=== PATIENT | male | born 1950 | race Caucasian/White ===

== ENCOUNTER 2024-11-07 08:41 | Emergency (ER) | payer OTHER, SELFPAY ==
--- NOTE | ~2024-11-07 | XR_ITS ---
XR shoulder LT min 2V DATE: 11/07/2024 12:53 INDICATION: Fall. Left shoulder pain. TECHNIQUE: 4 views COMPARISON: None FINDINGS: There is joint space narrowing and mild spurring at the left acromioclavicular joint. There is mild superior subluxation at the glenohumeral joint suggesting some rotator cuff atrophy. Mild left glenohumeral osteoarthritis is suggested. There is pseudoarthrosis at the coracoclavicular area. No fracture, dislocation, periosteal reaction or bone destruction or abnormal soft tissue calcificati on of the left shoulder is detected. Prominent cervical spondylosis. Likely old left upper rib fractures. Aortic arch calcification. IMPRESSION: Rotator cuff atrophy Mild glenohumeral osteoarthritis Prominent degenerative change of the left carotid fibula joint Pseudoarthrosis at the coracoclavicular area Prominent cervical spondylosis Reviewed, dictated and finalized at location [facility]. REPAIR SUPERVISOR
--- NOTE | ~2024-11-07 | CT_ITS ---
EXAMINATION: CT brain wo con DATE: 11/07/2024 12:37 INDICATION: Fall TECHNIQUE: Computed tomography (CT) of the head was performed without intravenous contrast. The mA wa s adjusted according to patient size. Iterative reconstruction technique was employed. Exam dose: 75 6.67 mGy-cm total exam DLP. COMPARISON: None FINDINGS: Very prominent bilateral symmetric cerebral cortical atrophy. There is prominent cerebellar atrophy. Vertebral, basilar and bilateral carotid siphon internal carotid artery calcifications. There is nonspecific diminished attenuation of the cerebral white matter, likely due to chronic small vessel ischemic changes. No intracranial mass lesion or hemorrhage, midline shift or mass effect. No subdural or epidural monica pollo is detected. The paranasal sinuses and mastoid air cells are well-developed and aerated. No fracture or bone destruction of the cranial vault. IMPRESSION: Very prominent cerebral cortical and cerebellar atrophy Cerebral atherosclerosis and chronic small vessel ischemic changes in cerebral white matter No acute intracranial finding or skull fracture Reviewed, dictated and finalized at [facility]. Reviewed, dictated and finalized at location [facility]. DRIER
--- NOTE | ~2024-11-07 | CT_ITS ---
CT abdomen pelvis w con Ordering provider: Shan Tinajero MD History: 74 years Male with . Hyperbilirubinemia . Comparison: None. Technique: CT abdomen and pelvis with IV and without oral contrast. Automated exposure control and it erative reconstruction technique were employed. The dose-length product was 1137.91 mGy-cm. Findings: VISUALIZED LOWER CHEST: Dependent atelectatic changes. UPPER ABDOMINAL ORGANS: Liver: Fat infiltration. Gallbladder: Normal. Spleen: Hypodense area seen medially measuring 2.7 cm. Stomach/duodenum: Small sliding hiatus hernia. Pancreas: Normal. Adrenals: Nodule in the left adrenal measuring 1.7 cm no follow-up advised unless clinically warrante d. Kidneys: Tiny calcification in the left kidney renal cortex. Multilocular Right kidney lower pole exo phytic cyst measuring 3.7 cm. Tiny cyst in the right kidney upper pole. PELVIC ORGANS: The bladder is normal. BOWEL AND MESENTERY: Colon: No evidence of diverticulitis. Slightly thickened wall of the rectum.Appendix is not demonstra jesus. Small Bowel: Normal. No obstruction. Peritoneum/mesentery: No free air or free fluid. No mesenteric lymphadenopathy. RETROPERITONEUM: Mild atheromatous disease of the abdominal aorta. No retroperitoneal lymphadenopat hy. MUSCULOSKELETAL: Superficial soft tissues: A fat-containing right inguinal hernia. Otherwise, The superficial soft tis sues are normal. Bones: Age appropriate degenerative changes of the spine. Old compression fractures of T11, T12 and L 1. IMPRESSION: 1. Fat infiltration of the liver. 2. Multilocular right kidney cyst. Follow-up advised. 3. Sliding hiatus hernia. 4. Slightly thickened wall of the rectum. Clinical evaluation advised. 5. Old compression fracture of T11, T12, and L1. 6. Splenic cyst. Reviewed, dictated and finalized at location A. VIORAL SCIENTIST
--- NOTE | ~2024-11-07 | CT_ITS ---
EXAMINATION: CT cervical spine wo con DATE: 11/07/2024 12:38 INDICATION: Fall TECHNIQUE: Computed tomography (CT) of the cervical spine was performed without intravenous contrast. Automated exposure control and iterative reconstruction technique were employed. Exam dose: 375.63 mGy-cm total exam DLP. COMPARISON: None FINDINGS: Normal alignment at the atlantoaxial joints. C1 and C2 are normally aligned and the odontoid process is intact. Severe degenerative disease at C5-6 and moderately severe degenerative disc disease at C6-7. There is degenerative change at the facet joints. Uncovertebral joint spurring is noted at C5-6 and C 6-7. No fracture or dislocation. Prevertebral soft tissue swelling is detected. Anterior left second rib fracture, likely old. No cervical mass lesion or lymphadenopathy is evident. Included upper lung zones are clear. IMPRESSION: Cervical spondylosis; a fracture or dislocation or locked facet Reviewed, dictated and finalized at [facility]. Reviewed, dictated and finalized at location A. 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
[2024-11-07 08:47] VITALS: BP 146/89; PULSE 92; RESP 20; TEMP 36.3; O2SAT 99
--- NOTE | 2024-11-07 12:07 | ED.FALL ---
HPI - Fall General Chief Complaint: Fall Stated Complaint: fall Time Seen by Provider: 11/07/24 12:06 Source: patient Mode of arrival: EMS Limitations: no limitations History of Present Illness HPI Narrative: 74 years old white male was carrying his laundry on the right hand, using a cane left hand, tripped and fell, struck the back of his head on the ground, complaining of left shoulder pain and head pain. No loss of consciousness. Patient had history of numerous falls of unknown etiology, uses walker, cane, lives alone, do his laundry out of the house, denied anti-platelet or anticoagulant medications, patient denies any fever, chills, nausea, vomiting, chest pain, shortness of breath, back pain or abdominal pain. Patient report knee pains bilaterally more on the left side for years which high likely causing him to fall lot. Review of Systems Review of Systems: All systems reviewed & are unremarkable except as noted in HPI and below Exam Narrative: General appearance: Well-developed, well-nourished Skin: Normal color, multiple ecchymosis all over upper and lower extremities, old Head: Normocephalic, septal bruises Eyes: Clear conjunctiva ENT: Oropharynx normal, ears normal, nose normal Neck: Supple, nontender Chest and respiratory: Airway patent, no respiratory distress, no accessory muscle use Heart: Regular rate/rhythm Abdomen: Soft, nontender, no organomegaly, quiet bowel sounds Vascular: Normal peripheral pulses, normal capillary refill. Musculoskeletal: Slight limited range of motion of the knees bilaterally more on the left side, no deformity, no swelling, Neurologic: Alert and oriented ?3, [employer] is normal as tested, no gross motor deficit Course Vital Signs Vital signs: Vital Signs Temperature 36.3 C L 11/07/24 08:47 Pulse Rate 92 11/07/24 08:47 Respiratory Rate 20 11/07/24 08:47 Blood Pressure 146/89 H 11/07/24 08:47 Pulse Oximetry 99 11/07/24 08:47 Temperature 36.5 C 11/07/24 15:58 Pulse Rate 79 11/07/24 15:58 Respiratory Rate 13 11/07/24 15:58 Blood Pressure 157/98 H 11/07/24 15:58 Pulse Oximetry 100 11/07/24 15:58 MDM - Fall MDM Narrative Medical decision making narrative: Patient have ground level fall came to the ED by ambulance. Patient is telling me that he had a history of numerous falls and usually does not come to the ED cause is able to use different nature as support to get up. But today the fall happened outside the house, and the bystander to call 911. Vital signs are stable Physical examination significant for multiple bruises all over upper and lower extremities which are old, slight limited range of motion of the left knee and left shoulder. Bruises at the occipital area, otherwise generally weak Differential diagnosis include general weakness, lack of physical activity, losing balance because carrying laundry and using cane at the same time, electrolyte abnormality, dehydration Blood workup to the anus CBC, CMP showed platelets of 127, total bilirubin of 5.0, AST 84, ALT 21, alkaline phosphatase is 104 Urinalysis showed evidence of infection CT head, CT cervical spine without contrast showed no acute abnormalities X-ray of the left shoulder showed rotator cuff atrophy Because of elevated bilirubin CT abdomen and pelvis with IV contrast order which showed fatty infiltration of the liver, thickened wall of the rectum, old compression fracture of T11-T12 and L1. Patient discharged with a fall, urinary tract infection, elevated bilirubin follow-up with family physician in 1 week. Discharge the pt was discharged to home.the pt,s condition upon discharge was fair,education was provided to the pt in reference to the final impression,discharge study results,treatment,prognosis and need for follow up . Differential Diagnosis Differential diagnosis: Likely other (Closed head injury, left shoulder contusion, ecchymosis) Lab Data 11/07/24 13:36 11/07/24 13:37 Labs: Lab Results 11/07/24 11/07/24 11/07/24 Range/Units 13:36 13:37 15:50 WBC 6.7 (4.5-10.0) K/mm3 RBC 3.38 L (4.6-6.20) M/mm3 Hgb 10.8 L (14.0-18.0) g/dL Hct 32.6 L (42.0-52.0) % MCV 96.4 (80-100) fl MCH 32.0 (26-34) pg MCHC 33.1 (32-36) g/dl RDW 14.0 (11.5-14.5) % Plt Count 127 L (150-375) k/mm3 MPV 9.7 (7.4-10.4) fl Immature Gran % (Auto) 0.3 (0-0.5) % Neut % (Auto) 71.4 (45.5-73.1) % Lymph % (Auto) 17.3 L (18.3-44.2) % [place] % (Auto) 10.0 H (2.6-8.5) % Eos % (Auto) 0.4 (0-4.4) % Baso % (Auto) 0.6 (0.2-1.2) % Lymph # (Auto) 1.16 (0.9-3.2) K/mm3 Wilcox # (Auto) 0.7 H (0.1-0.6) K/mm3 Eos # (Auto) 0.0 (0-0.3) K/mm3 Baso # (Auto) 0.0 (0.0-0.1) K/mm3 Abs Immat Gran (auto) 0.02 (0.00-0.031) K/mm3 Absolute Neuts (auto) 4.8 (1.3-6.7) K/mm3 Absolute Nucleated RBC 0.000 (0.0-0.012) K/mm3 Nucleated RBC % 0.0 (0.0-0.2) % % Immature Plt Fraction 3.7 (0.9-11.2) % PT 13.9 (11.1-14.7) Seconds INR 1.0 APTT 33.0 (22.3-36.8) Seconds Sodium 135 L (137-145) mmol/L Potassium 3.8 (3.4-5.0) mmol/L Chloride 103 (98-107) mmol/L Carbon Dioxide 27 (22-30) mmol/L Anion Gap 5 (4-12) mmol/L BUN 24 H (9-20) mg/dL Creatinine 0.90 (0.7-1.3) mg/dL Estim Creat Clear Calc 72 ml/min Estimated GFR > 60 (59 - ) Glucose 83 (65-110) mg/dL Calcium 9.8 (8.4-10.2) mg/dL Total Bilirubin 5.0 H (0.2-1.3) mg/dL AST 84 H (17-59) U/L ALT 21 (6-50) U/L Alkaline Phosphatase 104 (38-126) U/L Total Protein 8.0 (6.3-8.2) g/dL Albumin 4.1 (3.5-5.1) g/dL Urine Color Yellow (Yellow) Urine Appearance Clear (Clear) Urine pH 7.5 (5.0-9.0) Ur Specific [place] 1.015 (1.001-1.035) Urine Protein 1+ H (Negative) mg/dL Urine Glucose (UA) Negative (Negative) mg/dL Urine Ketones 1+ H (Negative) mg/dL Ur Blood (Man) Trace (Negative) Urine Nitrate Negative (Negative) Urine Bilirubin Negative (Negative) Urine Urobilinogen 1.0 (<2.0) mg/dL Leukocyte Esterase Rfl 2+ H (Negative) NATI/UL Urine RBC 3-5 H (0-2) /hpf Urine WBC 51-100 H (0-3) /hpf Ur Squamous Epith Cells None seen (Few) /hpf Urine Bacteria 4+ H /hpf Urine Casts 0-2 Imaging Data Radiologist's impression: Impressions Head CT 11/07/24 12:38 IMPRESSION: Very prominent cerebral cortical and cerebellar atrophy Cerebral atherosclerosis and chronic small vessel ischemic changes in cerebral white matter No acute intracranial finding or skull fracture Cervical Spine CT 11/07/24 13:05 IMPRESSION: Cervical spondylosis; a fracture or dislocation or locked facet Shoulder X-Ray 11/07/24 13:12 IMPRESSION: Rotator cuff atrophy Mild glenohumeral osteoarthritis Prominent degenerative change of the left carotid fibula joint 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 Patient Language: Estonian Prescriptions: New ciprofloxacin HCl [Cipro] 500 mg tablet 500 mg PO Q12H Qty: 14 0RF Follow-up/Referrals: PHYSICIAN NOT ON STAFF,NONSTAFF [Non-Staff] -
--- NOTE | 2024-11-07 12:17 | ECG_ITS ---
Test Date: 2024-11-07 13:53:37 Measurements Intervals [place] Rate: 79 P: 17 AK: 175 QRS: 55 QRSD: 101 T: 67 QT: 432 QTc: 497 Interpretive Statements SINUS RHYTHM NONSPECIFIC T-WAVE ABNORMALITY PROLONGED QT INTERVAL No previous ECG available for comparison Electronically Signed On 11-11-2024 15:49:31 CLERK TELEGRAPH SERVICE by Nito Long M.D.
[2024-11-07 12:20] VITALS: BP 145/94; PULSE 81; RESP 15; TEMP 36.8; O2SAT 100
[2024-11-07 13:45] LABS: Basophils Percent Auto 0.6 % (0.2-1.2); Eosinophils Percent Auto 0.4 % (0-4.4); Hematocrit 32.6 % (42.0-52.0); Hemoglobin 10.8 g/dL (14.0-18.0); Immature Granulocyte Absolute 0.02 K/mm3 (0.00-0.031); Immature Granulocyte Percent A 0.3 % (0-0.5); Immature Platelet Fraction Pct 3.7 % (0.9-11.2); Lymphocytes Absolute Auto 1.16 K/mm3 (0.9-3.2); Lymphocytes Percent Auto 17.3 % (18.3-44.2); Mean Corpuscular HGB Conc 33.1 g/dl (32-36); Mean Corpuscular Volume 96.4 fl (80-100); Mean Platelet Volume 9.7 fl (7.4-10.4); Monocytes Absolute Auto 0.7 K/mm3 (0.1-0.6); Neutrophils Absolute Auto 4.8 K/mm3 (1.3-6.7); Neutrophils Percent Auto 71.4 % (45.5-73.1); Platelet Count Result 127 k/mm3 (150-375); Red Blood Count 3.38 M/mm3 (4.6-6.20); White Blood Count 6.7 K/mm3 (4.5-10.0)
[2024-11-07 13:54] LABS: Alanine Aminotransferase 21 U/L (6-50); Albumin Level 4.1 g/dL (3.5-5.1); Alkaline Phosphatase 104 U/L (38-126); Anion Gap 5 mmol/L (4-12); Aspartate Amino Transferase 84 U/L (17-59); Blood Urea Nitrogen 24 mg/dL (9-20); Calcium 9.8 mg/dL (8.4-10.2); Carbon Dioxide 27 mmol/L (22-30); Chloride 103 mmol/L (98-107); Estimated CRCL calculation 72 ml/min; Estimated Glomerular Filt Rate > 60; Glucose 83 mg/dL (65-110); Potassium 3.8 mmol/L (3.4-5.0); Sodium 135 mmol/L (137-145)
[2024-11-07 13:59] VITALS: BP 140/90; PULSE 76; RESP 13; TEMP 36.9; O2SAT 99
[2024-11-07 14:11] LABS: Prothrombin Time 13.9 Seconds (11.1-14.7)
[2024-11-07] MEDS: SODIUM CHLORIDE 0.9% IV 1,000 ML 999 ML IV CONT (14:55)
[2024-11-07 15:58] VITALS: BP 157/98; PULSE 79; RESP 13; TEMP 36.5; O2SAT 100
[2024-11-07 16:01] LABS: Add Urine Microscopic? YES; Appearance Urine Clear (Clear); Bacteria Urine 4+ /hpf; Bilirubin Urine Negative (Negative); Blood Urine Trace (Negative); Color Urine Yellow (Yellow); Glucose Urine UA Negative (Negative); Ketones Urine 1+ mg/dL (Negative); Leukocyte Esterase Ur 2+ LEU/UL (Negative); Nitrate Urine Negative (Negative); Non Pathogenic Casts 0-2; Protein Urine 1+ mg/dL (Negative); Specific Grav Ur 1.015 (1.001-1.035); Squamous Epithelial Cell Urine None Seen /hpf (Few); WBC Urine 51-100 /hpf (0-3); pH Urine 7.5 (5.0-9.0)
== END 2024-11-07 17:15 | disposition home or self-care (01) ==
PROVIDERS: Emergency Provider Emergency Medicine
DX: S00.03XA Contusion of scalp, initial encounter (principal); S49.92XA Unspecified injury of left shoulder and upper arm, initial encounter; N39.0 Urinary tract infection, site not specified; E80.6 Other disorders of bilirubin metabolism; W01.0XXA Fall on same level from slipping, tripping and stumbling without subsequent striking against object, initial encounter; M47.812 Spondylosis without myelopathy or radiculopathy, cervical region; M19.012 Primary osteoarthritis, left shoulder; K76.0 Fatty (change of) liver, not elsewhere classified; N28.1 Cyst of kidney, acquired; K44.9 Diaphragmatic hernia without obstruction or gangrene; R93.3 Abnormal findings on diagnostic imaging of other parts of digestive tract; D73.4 Cyst of spleen; M62.522 Muscle wasting and atrophy, not elsewhere classified, left upper arm; R94.31 Abnormal electrocardiogram [ECG] [EKG]
CPT/HCPCS: 36415; 70450; 72125; 73030; 74177; 80053; 81001; 85025; 85055; 85610; 85730; 87086; 87181; 93005; 96360; 99284; J7030; Q9967